=== PATIENT | male | born 1995 | race Caucasian/White ===

== ENCOUNTER 2018-06-30 01:18 | Emergency (ER) | payer OTHER, MEDICAID, SELFPAY ==
--- NOTE | 2018-06-30 01:22 | ED.SOB ---
HPI - SOB/Dyspnea General Chief Complaint: Back Pain/Injury Stated Complaint: scoliosis, back pain/breathing difficulty Time Seen by Provider: 06/30/18 01:21 Source: patient Mode of arrival: ambulatory Limitations: no limitations History of Present Illness 22-year-old male, nonsmoker presents with his significant other in the chief complaint of 6 months of back pain and right-sided chest pain. 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 His pain is worse when he moves and improves with rest. He denies any significant or memory bowl injury. He has had no runny nose, fever chills or cough. He denies any numbness, tingling or weakness. He denies cough or recent travel. He denies any therapies to improve symptoms. He denies rash. He admits to shortness of breath but states because it hurts to take a deep breath MD Complaint: shortness of breath and chest pain Onset (ago): month(s) Severity: mild Consistency/Duration: intermittent Relieving factors: nothing Exacerbating factors: deep breaths Associated symptoms: denies other symptoms Treatment prior to arrival: none Related Data Previous Rx's Medication Instructions Recorded ketorolac 10 mg PO Q6H PRN #14 tab 06/30/18 Allergies Allergy/AdvReac Type Severity Reaction Status Date / Time No Known Drug Allergies Allergy Verified 06/30/18 01:48 Review of Systems Review of Systems All systems reviewed & are unremarkable except as noted in HPI and below Constitutional Denies chills, Denies fever(s), Denies lethargy and Denies weakness Eyes Denies change in vision, Denies eye discharge, Denies irritation and Denies loss of vision ENT Ears, Nose, Mouth, and Throat: Denies change in voice, Denies neck pain and Denies sore throat Cardiovascular Denies chest pain, Denies irregular heart rhythm, Denies lightheadedness, Denies palpitations, Denies dyspnea, Denies dyspnea on exertion and Denies orthopnea Respiratory Denies cough, Reports pain on inspiration, Reports pain with cough, Denies dyspnea, Denies dyspnea on exertion and Denies wheezing Gastrointestinal Gastrointestinal: Denies abdominal pain, Denies change in bowel habits, Denies diarrhea, Denies nausea and Denies vomiting Genitourinary Denies hematuria, Denies flank pain, Denies urinary incontinence and Denies urinary urgency Musculoskeletal Denies neck pain Integumentary/Breasts Denies pruritus, Denies erythema, Denies rash and Denies wounds Neurologic Denies confusion, Denies loss of vision and Denies weakness Psychiatric Denies anxiety, Denies confusion, Denies depression, Denies homicidal ideation and Denies suicidal ideation Endocrine Denies palpitations Hematologic/Lymphatic Denies easy bruising Allergic/Immunologic Denies wheezing PFSH Social History Smoking Status: Never smoker Exam Narrative Exam Narrative: GEN: AOx3 and in mild distress EYES: Pupils are equal, round, and reactive to light and accommodation. Extraoccular muscles are intact bilaterally. There is no subconjunctival hemorrhage or exudate. CHEST: Lungs are clear to auscultation bilaterally and free of wheezes, rales, or rhonchi. Heart rate is regular rhythm, there are no murmurs, clicks, rubs, or gallops. R chest pain to palpation and reproduceable with ROM of RUE ABD: Abdomen is soft and nontender. There is no guarding or rebound. Bowel sounds are normal in all 4 quadrants. There is no mass or organomegaly. EXT: Full painless ROM of all extremities with no loss of sensation or strength. SKIN: Warm, pink, and dry. No erythema or rash BACK: Back non tender and free of any obvious external abnormalities. Patient exam notes decreased range of motion and muscle spasm, but no CVA tenderness, or vertebral point tenderness. There are no symptoms of cauda equina such as saddle anesthesia, and decreased reflexes, decreased sensation or strength. Initial Vital Signs Initial Vital Signs: Vital Signs Temperature 97.9 F 06/30/18 01:27 Pulse Rate 84 06/30/18 01:27 Respiratory Rate 18 06/30/18 01:27 Blood Pressure 142/92 H 06/30/18 01:27 Pulse Oximetry 100 06/30/18 01:27 Procedures Orthopedic Splinting/Casting Injury #1: Side: right Upper Extremity Injury Location: shoulder Upper Extremity Immobilizer: sling/shoulder immobilizer Course Orders Ordered: ED Orders 06/30/18 01:42 XR chest 2V Stat Discontinued Medications Ketorolac Tromethamine (Toradol) 60 mg IM NOW ONE Stop: 06/30/18 01:58 Last Admin: 06/30/18 02:04 Dose: 60 mg Vital Signs - 8 hr 06/30/18 01:27 Temperature 97.9 F Pulse Rate 84 Respiratory Rate 18 Blood Pressure 142/92 H Pulse Oximetry 100 MDM - SOB/Dyspnea Imaging Data Chest x-ray: My impression: No PTX, No PNA. NAP Discharge Plan Departure Patient Disposition: Home Clinical Impression: Acute chest wall pain Discharge Date/Time: 06/30/18 02:29 Interventions: ED Discharge Assessment Last Done: 06/30/18 02:29 Instructions: DI for Atypical Chest Pain Activity Restrictions/Additional Instructions: *You have been diagnosed with [ chest wall pain ] *What to do: *Take medications as directed *Follow up with your primary care provider in 2-3 days, call for an appointment. Let them know you were seen in the Emergency Department and that we ask that you be seen in follow up *Return to ER if you should have any new, worsening or concerning symptoms Prescriptions: New ketorolac 10 mg tablet 10 mg PO Q6H PRN (Reason: pain) Qty: 14 RF: 0
[2018-06-30 01:27] VITALS: BP 142/92; PULSE 84; RESP 18; TEMP 36.6; O2SAT 100
--- NOTE | 2018-06-30 01:42 | DI.RAD.S_ITS ---
PROCEDURE: XR CHEST 2V INDICATIONS: Right sided chest pain TECHNIQUE: 2 views of the chest were acquired. COMPARISON: None. FINDINGS: Surgical changes and devices: None. Lungs and pleura: No pleural effusions or pneumothorax. Lungs are clear. Mediastinum: Mediastinal contours are normal. Heart size is normal. Bones and chest wall: No suspicious bony abnormalities. Soft tissues appear unremarkable. IMPRESSION: No acute cardiopulmonary disease process. Dictated by: Conchis Velarde MD, PhD on 06/30/2018 at 7:26 Approved by: Conchis Velarde MD, PhD on 06/30/2018 at 7:26
[2018-06-30] MEDS: KETOROLAC 60 MG/2 ML VIAL IM (02:04)
== END 2018-06-30 02:29 | disposition home or self-care (01) ==
PROVIDERS: Emergency Provider Emergency Medicine
DX: R07.89 Other chest pain (principal)
CPT/HCPCS: 71046; 96372; 99282; 99283; J1885

== ENCOUNTER 2018-08-20 19:52 | Emergency (ER) | payer OTHER, MEDICAID, SELFPAY ==
--- NOTE | 2018-08-20 19:58 | DI.RAD.S_ITS ---
PROCEDURE: XR SOFT TISSUE NECK INDICATIONS: feels fullness in throat, no suspected FB TECHNIQUE: 2 views of the neck were acquired. COMPARISON: None. FINDINGS: Airway: The airway appears patent. Soft tissues: Prevertebral soft tissues are normal in thickness. The epiglottis and aryepiglottic folds appear normal. No soft tissue gas. Bones: No suspicious bony lesions. Visualized cervical spine is normally aligned. IMPRESSION: Unremarkable exam. Dictated by: Sera Reveles M.D. on 08/20/2018 at 20:33 Approved by: Sera Reveles M.D. on 08/20/2018 at 20:33
[2018-08-20 20:01] VITALS: BP 143/113; PULSE 76; RESP 18; TEMP 36.6; O2SAT 100; BMI 19.5
--- NOTE | 2018-08-20 20:01 | ED.SOB ---
HPI - SOB/Dyspnea General Chief Complaint: Shortness of Breath/Dyspnea Stated Complaint: issues with throat causing breathing issues Time Seen by Provider: 08/20/18 19:52 Source: patient and family Mode of arrival: ambulatory Limitations: no limitations History of Present Illness 22-year-old male nonsmoker with history of anxiety presents with his significant other chief complaint of ongoing symptoms since last time we saw. He was here a month or so ago complaining of some vague chest and back problems that was thought to be related to muscle spasm or inflammation. Since then the symptoms have largely improved, he has followed up with his primary care provider thinks that symptoms are largely tied to anxiety. As a result he has been placed back on fluoxetine but presents tonight because of ongoing difficulty breathing which he states is no longer in his chest as on the last visit, but now in his throat. He denies any fever or chills nor any runny nose or cough. He states on occasion it is difficult to swallow and that with every deep breath he feels like care is getting stuck in his throat. He denies any injury. He denies any epigastric pain, history of reflux or metallic taste in his mouth. He does state that admittedly this could be anxiety, stating he has many stressors in the family currently MD Complaint: anxiety Onset (ago): month(s) Severity: mild Consistency/Duration: constant Relieving factors: nothing Exacerbating factors: nothing Treatment prior to arrival: none Related Data Home oxygen amount: none Previous Rx's Medication Instructions Recorded ketorolac 10 mg PO Q6H PRN #14 tab 06/30/18 Allergies Allergy/AdvReac Type Severity Reaction Status Date / Time No Known Drug Allergies Allergy Verified 06/30/18 01:48 Review of Systems Constitutional Denies chills, Denies fever(s), Denies lethargy and Denies weakness Eyes Denies change in vision, Denies eye discharge, Denies irritation and Denies loss of vision ENT Ears, Nose, Mouth, and Throat: Denies change in voice, Denies neck pain and Reports sore throat Cardiovascular Denies chest pain, Denies irregular heart rhythm, Denies lightheadedness, Denies palpitations, Denies dyspnea, Denies dyspnea on exertion and Denies orthopnea Respiratory Denies cough, Denies dyspnea, Denies dyspnea on exertion and Denies wheezing Gastrointestinal Gastrointestinal: Denies abdominal pain, Denies change in bowel habits, Denies diarrhea, Denies nausea and Denies vomiting Genitourinary Denies hematuria, Denies flank pain, Denies urinary incontinence and Denies urinary urgency Musculoskeletal Denies neck pain Integumentary/Breasts Denies pruritus, Denies erythema, Denies rash and Denies wounds Neurologic Denies confusion, Denies loss of vision and Denies weakness Psychiatric Reports anxiety, Denies confusion, Denies depression, Denies homicidal ideation and Denies suicidal ideation Endocrine Denies palpitations Hematologic/Lymphatic Denies easy bruising Allergic/Immunologic Denies wheezing [facility] Social History Smoking Status: Never smoker Exam Narrative Exam Narrative: GENERAL: 22-year-old male in no obvious distress, resting comfortably speaking clearly HEAD: Atraumatic. Normocephalic. No temporal or scalp tenderness. EYES: Pupils equal round and reactive. Extraocular motions intact. No scleral icterus. No injection or drainage. ENT: Nose without bleeding, purulent drainage or septal hematoma. Throat without erythema, tonsillar hypertrophy or exudate. Uvula midline. Airway patent. NECK: Trachea midline. No JVD or lymphadenopathy. Supple, nontender, no meningeal signs. CARDIOVASCULAR: Regular rate and rhythm without murmurs, gallops, or rubs. RESPIRATORY: Clear to auscultation. Breath sounds equal bilaterally. No wheezes, rales, or rhonchi. GASTROINTESTINAL: Abdomen soft, non-tender, nondistended. No hepato-splenomegaly, or palpable masses. No guarding. EXTREMITIES: No clubbing, cyanosis, or edema. No joint tenderness, effusion, or edema noted. BACK: Nontender without deformity or crepitance. No flank tenderness. NEURO: AOx3. SKIN: No rash or erythema. Initial Vital Signs Initial Vital Signs: Vital Signs Temperature 98 F 08/20/18 20:01 Pulse Rate 76 08/20/18 20:01 Respiratory Rate 18 08/20/18 20:01 Blood Pressure 143/113 H 08/20/18 20:01 Pulse Oximetry 100 08/20/18 20:01 Course Orders Ordered: ED Orders 08/20/18 19:58 XR soft tissue neck Stat 08/20/18 20:08 Influenza A and B by PCR Rapid Stat Vital Signs - 8 hr 08/20/18 20:01 Temperature 98 F Pulse Rate 76 Respiratory Rate 18 Blood Pressure 143/113 H Pulse Oximetry 100 MDM - SOB/Dyspnea Medical Records Attestation: I reviewed the patient's medical records. Lab Data Attestation: I reviewed the patient's lab results. Lab Results 08/20/18 Range/Units 20:08 Influenza A & B (PCR) Negative (Negative) Point of Care Testing Rapid Strep A Negative Imaging Data Soft Tissue of Neck: Attestation: I personally reviewed and interpreted this imaging study as follows: My impression: NAP Radiologist's impression: [address] [address] XRay Report Signed Patient: Anshu RubyR#: [id number] : 1995Acct:[id number] Age/Sex: 22 MDate of Service: 08/20/18 Loc: ED Accession Number: [id number] Procedure: XR soft tissue neck Ordering Provider: Silver Floyd D.O. PROCEDURE: XR SOFT TISSUE NECK INDICATIONS: feels fullness in throat, no suspected FB TECHNIQUE: 2 views of the neck were acquired. COMPARISON: None. FINDINGS: Airway: The airway appears patent. Soft tissues: Prevertebral soft tissues are normal in thickness. The epiglottis and aryepiglottic folds appear normal. No soft tissue gas. Bones: No suspicious bony lesions. Visualized cervical spine is normally aligned. IMPRESSION: Unremarkable exam. Dictated by: Sera Reveles M.D. on 08/20/2018 at 20:33 Approved by: Sera Reveles M.D. on 08/20/2018 at 20:33 [facility] Narrative Medical decision making narrative: 22M presents with difficulty breathy which he says is from fullness in his throat. He has no fever, chills or other infectious complaints. No lymphadenopathy, tonsillar swelling, exudate or abnormal exams. Flu, strep, and xray normal. Symptoms are episodic and many diagnoses such as strep, flu, peritonsillar abscess, GERD, esophageal perforation, esophageal foreign body and other considered, but thought less likely given history, physical, and above stated objective testing. Discharge Plan Departure Patient Disposition: Home Clinical Impression: Anxiety, Breath shortness Activity Restrictions/Additional Instructions: *You have been diagnosed with [ throat fullness, shortness of breath, anxiety ] *What to do: * continue to take medications as directed *Follow up with your primary care provider in 2-3 days, call for an appointment. Let them know you were seen in the Emergency Department and that we ask that you be seen in follow up *Return to ER if you should have any new, worsening or concerning symptoms Prescriptions: No Action ketorolac 10 mg tablet 10 mg PO Q6H PRN (Reason: pain) Qty: 14 RF: 0
--- NOTE | 2018-08-20 20:05 | ED_ITS ---
HPI - SOB/Dyspnea General Chief Complaint: Shortness of Breath/Dyspnea Stated Complaint: issues with throat causing breathing issues Time Seen by Provider: 08/20/18 19:52 Source: patient and family Mode of arrival: ambulatory Limitations: no limitations History of Present Illness 22-year-old male nonsmoker with history of anxiety presents with his significant other chief complaint of ongoing symptoms since last time we saw. He was here a month or so ago complaining of some vague chest and back problems that was thought to be related to muscle spasm or inflammation. Since then the symptoms have largely improved, he has followed up with his primary care provider thinks that symptoms are largely tied to anxiety. As a result he has been placed back on fluoxetine but presents tonight because of ongoing difficulty breathing which he states is no longer in his chest as on the last visit, but now in his throat. He denies any fever or chills nor any runny nose or cough. He states on occasion it is difficult to swallow and that with every deep breath he feels like care is getting stuck in his throat. He denies any injury. He denies any epigastric pain, history of reflux or metallic taste in his mouth. He does state that admittedly this could be anxiety, stating he has many stressors in the family currently MD Complaint: anxiety Onset (ago): month(s) Severity: mild Consistency/Duration: constant Relieving factors: nothing Exacerbating factors: nothing Treatment prior to arrival: none Related Data Home oxygen amount: none Previous Rx's Medication Instructions Recorded ketorolac 10 mg PO Q6H PRN #14 tab 06/30/18 Allergies Allergy/AdvReac Type Severity Reaction Status Date / Time No Known Drug Allergies Allergy Verified 06/30/18 01:48 Review of Systems Constitutional Denies chills, Denies fever(s), Denies lethargy and Denies weakness Eyes Denies change in vision, Denies eye discharge, Denies irritation and Denies loss of vision ENT Ears, Nose, Mouth, and Throat: Denies change in voice, Denies neck pain and Reports sore throat Cardiovascular Denies chest pain, Denies irregular heart rhythm, Denies lightheadedness, Denies palpitations, Denies dyspnea, Denies dyspnea on exertion and Denies orthopnea Respiratory Denies cough, Denies dyspnea, Denies dyspnea on exertion and Denies wheezing Gastrointestinal Gastrointestinal: Denies abdominal pain, Denies change in bowel habits, Denies diarrhea, Denies nausea and Denies vomiting Genitourinary Denies hematuria, Denies flank pain, Denies urinary incontinence and Denies urinary urgency Musculoskeletal Denies neck pain Integumentary/Breasts Denies pruritus, Denies erythema, Denies rash and Denies wounds Neurologic Denies confusion, Denies loss of vision and Denies weakness Psychiatric Reports anxiety, Denies confusion, Denies depression, Denies homicidal ideation and Denies suicidal ideation Endocrine Denies palpitations Hematologic/Lymphatic Denies easy bruising Allergic/Immunologic Denies wheezing [facility] Social History Smoking Status: Never smoker Exam Narrative Exam Narrative: GENERAL: 22-year-old male in no obvious distress, resting comfortably speaking clearly HEAD: Atraumatic. Normocephalic. No temporal or scalp tenderness. EYES: Pupils equal round and reactive. Extraocular motions intact. No scleral icterus. No injection or drainage. ENT: Nose without bleeding, purulent drainage or septal hematoma. Throat without erythema, tonsillar hypertrophy or exudate. Uvula midline. Airway patent. NECK: Trachea midline. No JVD or lymphadenopathy. Supple, nontender, no meningeal signs. CARDIOVASCULAR: Regular rate and rhythm without murmurs, gallops, or rubs. RESPIRATORY: Clear to auscultation. Breath sounds equal bilaterally. No wheezes, rales, or rhonchi. GASTROINTESTINAL: Abdomen soft, non-tender, nondistended. No hepato- splenomegaly, or palpable masses. No guarding. EXTREMITIES: No clubbing, cyanosis, or edema. No joint tenderness, effusion, or edema noted. BACK: Nontender without deformity or crepitance. No flank tenderness. NEURO: AOx3. SKIN: No rash or erythema. Initial Vital Signs Initial Vital Signs: Vital Signs Temperature 98 F 08/20/18 20:01 Pulse Rate 76 08/20/18 20:01 Respiratory Rate 18 08/20/18 20:01 Blood Pressure 143/113 H 08/20/18 20:01 Pulse Oximetry 100 08/20/18 20:01 Course Orders Ordered: ED Orders 08/20/18 19:58 XR soft tissue neck Stat 08/20/18 20:08 Influenza A and B by PCR Rapid Stat Vital Signs - 8 hr 08/20/18 20:01 Temperature 98 F Pulse Rate 76 Respiratory Rate 18 Blood Pressure 143/113 H Pulse Oximetry 100 MDM - SOB/Dyspnea Medical Records Attestation: I reviewed the patient's medical records. Lab Data Attestation: I reviewed the patient's lab results. Lab Results 08/20/18 Range/Units 20:08 Influenza A & B (PCR) Negative (Negative) Point of Care Testing Rapid Strep A Negative Imaging Data Soft Tissue of Neck: Attestation: I personally reviewed and interpreted this imaging study as follows: My impression: NAP Radiologist's impression: [address] [address] XRay Report Signed Patient: Anshu RubyR#: [id number] : 1995Acct:[id number] Age/Sex: 22 MDate of Service: 08/20/18 Loc: ED Accession Number: [id number] Procedure: XR soft tissue neck Ordering Provider: Silver Floyd D.O. PROCEDURE: XR SOFT TISSUE NECK INDICATIONS: feels fullness in throat, no suspected FB TECHNIQUE: 2 views of the neck were acquired. COMPARISON: None. FINDINGS: Airway: The airway appears patent. Soft tissues: Prevertebral soft tissues are normal in thickness. The epiglottis and aryepiglottic folds appear normal. No soft tissue gas. Bones: No suspicious bony lesions. Visualized cervical spine is normally aligned. IMPRESSION: Unremarkable exam. Dictated by: Sera Reveles M.D. on 08/20/2018 at 20:33 Approved by: Sera Reveles M.D. on 08/20/2018 at 20:33 [facility] Narrative Medical decision making narrative: 22M presents with difficulty breathy which he says is from fullness in his throat. He has no fever, chills or other infectious complaints. No lymphadenopathy, tonsillar swelling, exudate or abnormal exams. Flu, strep, and xray normal. Symptoms are episodic and many diagnoses such as strep, flu, peritonsillar abscess, GERD, esophageal perforation, esophageal foreign body and other considered, but thought less likely given history, physical, and above stated objective testing. Discharge Plan Departure Patient Disposition: Home Clinical Impression: Anxiety, Breath shortness Activity Restrictions/Additional Instructions: *You have been diagnosed with [ throat fullness, shortness of breath, anxiety ] *What to do: * continue to take medications as directed *Follow up with your primary care provider in 2-3 days, call for an appointment. Let them know you were seen in the Emergency Department and that we ask that you be seen in follow up *Return to ER if you should have any new, worsening or concerning symptoms Prescriptions: No Action ketorolac 10 mg tablet 10 mg PO Q6H PRN (Reason: pain) Qty: 14 RF: 0
--- NOTE | 2018-08-20 20:24 | PC.NURSE ---
Patient states this pain has been occurring for approximately a year. States it gets worse when he lifts weights or climbs up hills but states it gets better when he puts pressure on his chest or does cardio exercises. States he feels that his breathing is worse at night and his girlfriend tells him he has a hard time breathing. Patient states his doctor, and the people at his work think that it could be anxiety. When asked about anxiety he states he has some hard things in his life and a lot of family drama however he is concerned that he has throat or lung cancer because his family at a young age from cancer and cardiac problems. Patient is talking in full complete sentences and talks at a very fast pace. Pt seems anxious but denies feeling anxious. girlfriend at bedside states he has been staying at her house with her parents and that her mother does not approve of him, girlfriend believes this is causing him to have increased anxiety. Patient denies this but states he is afraid that he is going to in his sleep from not being able to breathe correctly.
[2018-08-20 20:37] LABS: Influenza A and B by PCR Rapid Negative (Negative)
[2018-08-20 20:59] VITALS: BP 122/79; PULSE 63; RESP 16; TEMP 37.2; O2SAT 99
== END 2018-08-20 21:01 | disposition home or self-care (01) ==
PROVIDERS: Emergency Provider Emergency Medicine
DX: F41.9 Anxiety disorder, unspecified (principal); R06.02 Shortness of breath
CPT/HCPCS: 70360; 87400; 87880; 99282; 99284

== ENCOUNTER 2018-10-29 13:50 | Emergency (ER) | payer OTHER, MEDICAID, SELFPAY ==
[2018-10-29 13:54] VITALS: BP 131/82; PULSE 72; RESP 20; TEMP 37.3; O2SAT 100
--- NOTE | 2018-10-29 17:28 | PC.NURSE ---
Initial Visual acuity testing 20/40 bilaterally. now 20/30. Provider notified.
[2018-10-29 17:41] VITALS: BP 113/72; PULSE 58; RESP 20; TEMP 36.9; O2SAT 99
--- NOTE | 2018-10-29 22:02 | ED_ITS ---
HPI - Eye Problem <RIMMA Osorio - Last Filed: 10/29/18 22:20> General Chief complaint: Eye Problems Stated complaint: RT Eye blury poked spoon in eye Time Seen by Provider: 10/29/18 17:20 Source: patient Mode of arrival: ambulatory Limitations: no limitations History of Present Illness HPI Narrative: The patient is a 23-year-old nonsmoker who presents with a chief complaint of right eye pain. He states he poked himself in the eye with a spoon. he initially states he had blurry vision. Upon my interview he denies any blurry vision, or visual difficulties. He states his vision is at baseline upon my interview. He states his tetanus is up to date. He wears glasses but not contacts. Related Data Previous Rx's Medication Instructions Recorded ketorolac 10 mg PO Q6H PRN #14 tab 06/30/18 Allergies Allergy/AdvReac Type Severity Reaction Status Date / Time No Known Drug Allergies Allergy Verified 06/30/18 01:48 Review of Systems <RIMMA Osorio - Last Filed: 10/29/18 22:20> Review of Systems GENERAL: Denies chills, fatigue, malaise, fever, sweats. HEENT: See HPI RESPIRATORY: Denies dyspnea, cough, wheezing, hemoptysis, sputum. CARDIOVASCULAR: Denies chest pain, palpitations, orthopnea, edema, GASTROINTESTINAL: Denies nausea, vomiting, abdominal pain, diarrhea, constipation, melena. : Denies dysuria, frequency, incontinence, hematuria, urinary retention. MUSCULOSKELETAL: denies weakness, joint pain, or bony pain SKIN: Denies rash, skin lesions, or other NEUROLOGIC: Denies weakness, headache, numbness, change in speech, confusion, seizures, incoordination. PSYCHIATRIC: No concerning psychosocial issues. 12 point review of systems is negative except for those stated above PFSH <RIMMA Osorio - Last Filed: 10/29/18 22:20> Social History Smoking Status: Never smoker Social History Smoking Status: Never smoker Exam <RIMMA Osorio - Last Filed: 10/29/18 22:20> Narrative Exam Narrative: GENERAL: This is a well-nourished, well-developed patient, no acute distress HEAD: Atraumatic. Normocephalic. No temporal or scalp tenderness. EYES: Pupils equal round and reactive. Extraocular motions intact. No scleral icterus. No injection or drainage. no drainage noted. wearing glasses. ENT: Nose without bleeding, purulent drainage or septal hematoma. Throat without erythema, tonsillar hypertrophy or exudate. Uvula midline. Airway patent. NECK: Trachea midline. No JVD or lymphadenopathy. Supple, nontender, no meningeal signs. CARDIOVASCULAR: Regular rate and rhythm RESPIRATORY: No cough. No increased respiratory effort. EXTREMITIES: No clubbing, cyanosis, or edema. No joint tenderness, effusion, or edema noted. BACK: Nontender without deformity or crepitance. No flank tenderness. NEURO: AOx3. SKIN: No rash or erythema. Initial Vital Signs Initial Vital Signs: Vital Signs Temperature 99.1 F 10/29/18 13:54 Pulse Rate 72 10/29/18 13:54 Respiratory Rate 20 10/29/18 13:54 Blood Pressure 131/82 10/29/18 13:54 Pulse Oximetry 100 10/29/18 13:54 <DO Bernie Santana Last Filed: 11/04/18 19:06> Initial Vital Signs Initial Vital Signs: Vital Signs Temperature 99.1 F 10/29/18 13:54 Pulse Rate 72 10/29/18 13:54 Respiratory Rate 20 10/29/18 13:54 Blood Pressure 131/82 10/29/18 13:54 Pulse Oximetry 100 10/29/18 13:54 Course <RIMMA Osorio Last Filed: 10/29/18 22:20> Vital Signs - 8 hr 10/29/18 17:41 Temperature 98.5 F Pulse Rate 58 L Respiratory Rate 20 Blood Pressure 113/72 Pulse Oximetry 99 <DO Bernie Santana Last Filed: 11/04/18 19:06> Vital Signs - 8 hr 10/29/18 17:41 Temperature 98.5 F Pulse Rate 58 L Respiratory Rate 20 Blood Pressure 113/72 Pulse Oximetry 99 MDM - Eye Problem <RIMMA Osorio Last Filed: 10/29/18 22:20> [facility] Narrative Medical decision making narrative: The patient is a 23-year-old who presents with eye pain after a near this pin. The patient refused fluorescein exam the as he wanted to leave immediately. I discussed that he might have an abrasion or acute etiology that I could not evaluate if he does not consent to exam. He still declined. I encouraged him to follow up with primary care physician or eye physician for worsening or no improvement. Patient has no questions or concerns upon discharge. Did discuss strict ER return precautions of visual disturbance. Discharge Plan Departure Patient Disposition: Home Clinical Impression: Acute eye pain Discharge Date/Time: 10/29/18 17:43 Interventions: ED Discharge Assessment Last Done: 10/29/18 17:41 Activity Restrictions/Additional Instructions: You have elected to leave the emergency department without a throw eye evaluation as you are feeling better and your vision has improved. Please come back to the emergency department for any acute concerns such as visual problems. Please follow up with primary care provider. Prescriptions: No Action ketorolac 10 mg tablet 10 mg PO Q6H PRN (Reason: pain) Qty: 14 RF: 0 Stand Alone Forms: Work Release Note <Hanna Woods DO - Last Filed: 11/04/18 19:06> Cosign ED Attending Cosignature Attestation: I was immediately available in the department for consultation. This documentation has been reviewed and I agree with assessment and plan. Supervised by Hanna Woods DO
== END 2018-10-29 17:43 | disposition home or self-care (01) ==
PROVIDERS: Emergency Provider Nurse Practitioner Family
DX: H57.11 Ocular pain, right eye (principal)
CPT/HCPCS: 99282; 99283

== ENCOUNTER 2018-12-30 20:59 | Emergency (ER) | payer OTHER, MEDICAID, SELFPAY ==
[2018-12-30 21:01] VITALS: BP 147/81; PULSE 73; RESP 17; TEMP 36.1; O2SAT 100; BMI 19.3
--- NOTE | 2018-12-30 22:18 | ED_ITS ---
HPI - Dental/Oral General Chief complaint: Dental/Oral Stated complaint: state lump on his throat is really bothering him Time Seen by Provider: 12/30/18 22:14 Source: patient Mode of arrival: ambulatory Limitations: no limitations History of Present Illness HPI Narrative: Patient is a 23-year-old male with a lump the left side of his neck. He states it has been there for the past 3 or 4 weeks. He has seen his [facility] doctor. He states that he has ?labs ?completed in the past and he stated that he was told that his thyroid level was normal. He is scheduled for barium swallow on Tuesday of next week. He has no new symptoms today he just was worried about the lump in wanted to make sure that he could wait till Tuesday for further evaluation. He also describes cold and hot intolerance. He is having anxiety about the lump. Denies any sore throat. Denies any ear pain. No dental pain. Related Data Previous Rx's Medication Instructions Recorded ketorolac 10 mg PO Q6H PRN #14 tab 06/30/18 Allergies Allergy/AdvReac Type Severity Reaction Status Date / Time No Known Drug Allergies Allergy Verified 06/30/18 01:48 Review of Systems Constitutional Denies headache(s) ENT Ears, Nose, Mouth, and Throat: Denies dry mouth, Denies facial pain, Denies headache(s), Denies mouth pain, Reports neck mass, Denies nose pain, Denies disequilibrium, Denies sore throat and Denies throat swelling Comments: Left-sided neck mass Cardiovascular Denies chest pain and Denies dyspnea Respiratory Denies dyspnea Integumentary/Breasts Denies rash Neurologic Denies headache(s) and Denies disequilibrium Hematologic/Lymphatic Denies easy bleeding and Denies easy bruising Allergic/Immunologic Denies throat swelling [facility] Medical History Patient denies medical problems (Acute) Social History Smoking Status: Never smoker Social History Smoking Status: Never smoker Exam Initial Vital Signs Initial Vital Signs: Vital Signs Temperature 97.0 F L 12/30/18 21:01 Pulse Rate 73 12/30/18 21:01 Respiratory Rate 17 12/30/18 21:01 Blood Pressure 147/81 H 12/30/18 21:01 Pulse Oximetry 100 12/30/18 21:01 Const General: cooperative, comfortable, well developed, well groomed and No acute distress Orientation: alert, awake and oriented x3 HENMT Head: normal to inspection and normocephalic Face and sinus: normal facial exam Mouth: oral mucosae normal Teeth and gingiva: dentition normal Throat: posterior oropharynx normal Neck Thyroid: thyroid normal Other: Subcentimeter left side firm non moveable mass that is slightly tender to palpation. Anterior cervical Resp Effort & Inspection: normal respiratory effort Auscultation: clear to auscultation bilaterally Cardio Rate: regular rate Rhythm: regular rhythm Skin Lesions: no lesions Rashes: no rashes Neuro General: alert and awake Cognition: normal cognition Speech: speech normal Extrem General: normal to inspection and capillary refill normal Psych Appearance: grossly normal and well kempt Course Vital Signs - 8 hr 12/30/18 21:01 12/30/18 22:58 Temperature 97.0 F L Pulse Rate 73 61 Respiratory Rate 17 15 Blood Pressure 147/81 H 125/76 Pulse Oximetry 100 98 MDM - Dental/Oral MDM Narrative Medical decision making narrative: Patient does have a small left-sided anterior cervical mass that is not freely movable. He would does seem to be tender to palpation. There are no skin changes over the area. Informed him that I would recommend he keep the appointment the barium swallow on Tuesday. I suspect this is going to be unremarkable. Also informed her need to talk with his primary doctor about obtaining a thyroid ultrasound to further evaluate whether not this is a part of the ultrasound or not. He is having other symptoms consistent with hyperthyroidism however he stated that they checked his thyroid and it was ?normal? per labs. Will hold on further workup for now. Patient was given return precautions and follow-up instructions. He expressed understanding and agreement plan. Discharge Plan Departure Patient Disposition: Home Clinical Impression: Mass of lateral neck Discharge Date/Time: 12/30/18 22:59 Interventions: ED Discharge Assessment Last Done: 12/30/18 22:58 Activity Restrictions/Additional Instructions: I recommend you keep your medical appointment on Tuesday for the barium swallow. On Tuesday talk with your primary doctor about the indications for an ultrasound. Return to the emergency department for any new or worsening symptoms Prescriptions: No Action ketorolac 10 mg tablet 10 mg PO Q6H PRN (Reason: pain) Qty: 14 RF: 0 Stand Alone Forms: Work Release Note
[2018-12-30 22:58] VITALS: BP 125/76; PULSE 61; RESP 15; O2SAT 98
== END 2018-12-30 22:59 | disposition home or self-care (01) ==
PROVIDERS: Emergency Provider Emergency Medicine
DX: R22.1 Localized swelling, mass and lump, neck (principal)
CPT/HCPCS: 99282